=== PATIENT | female | born 1975 | race Caucasian/White ===

== ENCOUNTER 2016-07-31 06:15 | Emergency (ER) | payer OTHER ==
[~2016-07-31] VITALS: Ht 170.2 cm; Wt 63.5 kg
[~2016-07-31 06:15] MED LIST: ACETAMINOPHEN-1 EAC1 PO; AMOXICILLIN/POTASSIU; BENTYL 20 MG TA20 M1 PO; CIPRO500 M1 PO; CIPROFLOXACIN500 M1 PO; COMPAZINE10 MG PO; FLAGYL500 MG PO; HYDROCODONE-AP1 EA10 PO; IBUPROFEN 800800 M1 PO; KEFLEX500 MG PO; LEVAQUIN 500 M500 MG PO; MACROBID 100 M100 M1 PO; NAPROSYN500 MG PO; NOHOMEMEDICATIONS; NORCO 5-325 TA1 EACH PO; PERCOCET 10-321 EAC1 PO; PERCOCET 5-3251 EACH PO; PERCOCET PO; PHENAZOPYRIDIN100 M1 PO; PHENAZOPYRIDIN200 M2 PO; PHENERGAN 25 MG25 M1 PO; SENOKOT-S1 TA1 PO; TYLENOL325 MG PO; ZOFRAN ODT4 MG PO
[2016-07-31 06:22] VITALS: BP 144/81
== END 2016-07-31 07:31 | disposition home or self-care (01) ==
LOC: ER 06:15
DX: T18.8XXA Foreign body in other parts of alimentary tract, initial encounter (principal); F17.210 Nicotine dependence, cigarettes, uncomplicated; Z87.442 Personal history of urinary calculi; F10.99 Alcohol use, unspecified with unspecified alcohol-induced disorder; X58.XXXA Exposure to other specified factors, initial encounter; Y93.89 Activity, other specified; Y92.89 Other specified places as the place of occurrence of the external cause; Y99.8 Other external cause status

== ENCOUNTER 2021-04-04 17:23 | Emergency (ER) | payer OTHER ==
[~2021-04-04] VITALS: Ht 170.2 cm; Wt 65.8 kg
[2021-04-04 17:39] LABS: URINE BILIRUBIN NEGATIVE (Negative); URINE BLOOD NEGATIVE (Negative); URINE COLOR YELLOW; URINE GLUCOSE-RANDOM* NEGATIVE (Negative); URINE KETONES NEGATIVE (Negative); URINE LEUKOCYTES-REFLEX NEGATIVE (Negative); URINE NITRITE-REFLEX NEGATIVE (Negative); URINE PROTEIN (DIPSTICK) NEGATIVE (Negative); URINE UROBILINOGEN 0.2 E.U./dl (0.2-1.0)
[2021-04-04 17:44] LABS: URINE CLARITY SL HAZY
[2021-04-04 18:13] VITALS: BP 130/88
[2021-04-04 18:15] LABS: ABSOLUTE NEUTROPHILS 4.7 thou/uL (1.4-8.2); BASOPHILS 0.3 % (0.0-2.0); EOSINOPHILS 0.6 % (0.0-3.0); HEMATOCRIT 36.5 % (37.0-47.0); HEMOGLOBIN 11.5 gm/dL (12.0-15.0); LYMPHOCYTES 5.4 % (24.0-44.0); MCHC 31.4 g/dL (28.0-37.0); MCV 79.5 fL (80.0-100.0); MONOCYTES 4.9 % (1.0-8.0); PLATELET COUNT 209 thou/uL (150-400); POLYS 88.8 % (36.0-66.0); RBC 4.59 mil/uL (4.20-5.00); RDW 14.8 % (10.5-14.5); WBC 5.3 thou/uL (4.0-11.0)
[2021-04-04 18:26] LABS: CALCIUM 8.8 mg/dL (8.5-10.1); CREATININE 0.9 mg/dL (0.6-1.0); POTASSIUM 3.6 mmol/L (3.5-5.1)
[2021-04-04 18:32] LABS: ALBUMIN 3.7 g/dL (3.4-5.0); TOTAL BILIRUBIN 0.4 mg/dL (0.2-1.0); TOTAL PROTEIN 6.7 g/dL (6.4-8.2)
[2021-04-04] MEDS ORDERED: FLOMAX0.4 MG PO (19:49)
[2021-04-04] MEDS ORDERED: NORCO5 PO (19:49)
[2021-04-04] MEDS ORDERED: ZOFRAN ODT4 MG PO (19:49)
== END 2021-04-04 20:09 | disposition home or self-care (01) ==
LOC: ER 17:23
PROVIDERS: Emergency Medicine
DX: N20.0 Calculus of kidney (principal); F17.210 Nicotine dependence, cigarettes, uncomplicated

== ENCOUNTER 2021-04-05 08:49 | Emergency (ER) | payer OTHER ==
[~2021-04-05] VITALS: Ht 170.2 cm; Wt 68.0 kg
[~2021-04-05 08:49] MED LIST changes: +FLOMAX0.4 MG PO; +NORCO5 PO
[2021-04-05 09:54] LABS: ABSOLUTE NEUTROPHILS 2.6 thou/uL (1.4-8.2); BASOPHILS 0.5 % (0.0-2.0); EOSINOPHILS 0.5 % (0.0-3.0); HEMATOCRIT 40.3 % (37.0-47.0); HEMOGLOBIN 12.8 gm/dL (12.0-15.0); LYMPHOCYTES 12.1 % (24.0-44.0); MCH 25.2 pg (26.0-34.0); MCHC 31.8 g/dL (28.0-37.0); MCV 79.3 fL (80.0-100.0); MONOCYTES 7.6 % (1.0-8.0); PLATELET COUNT 189 thou/uL (150-400); POLYS 79.3 % (36.0-66.0); RBC 5.08 mil/uL (4.20-5.00); RDW 15.4 % (10.5-14.5); WBC 3.3 thou/uL (4.0-11.0)
[2021-04-05 10:06] LABS: CALCIUM 8.7 mg/dL (8.5-10.1); CREATININE 0.8 mg/dL (0.6-1.0); POTASSIUM 3.6 mmol/L (3.5-5.1)
[2021-04-05 10:56] VITALS: BP 106/72
== END 2021-04-05 11:07 | disposition home or self-care (01) ==
LOC: ER 08:49
PROVIDERS: Student in an Organized Health Care Education/Training Program
DX: U07.1 COVID-19 (principal); M79.10 Myalgia, unspecified site; F17.210 Nicotine dependence, cigarettes, uncomplicated

== ENCOUNTER 2021-04-06 12:37 | Emergency (ER) | payer OTHER ==
[~2021-04-06] VITALS: Ht 170.2 cm; Wt 68.0 kg
[2021-04-06 12:39] VITALS: BP 111/80
== END 2021-04-06 13:45 | disposition home or self-care (01) ==
LOC: ER 12:37
DX: U07.1 COVID-19 (principal); M79.10 Myalgia, unspecified site; F17.210 Nicotine dependence, cigarettes, uncomplicated